=== PATIENT | male | born 1965 | race African-American/Black ===

== ENCOUNTER 2016-07-11 14:52 | Emergency (ER) | payer MEDICAID ==
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
[2016-07-11 17:18] LABS: % BASOPHILS 0.2 % (0.0-2.0); % EOSINOPHILS 2.7 % (0.0-5.0); % LYMPHOCYTES 35.9 % (20.0-50.0); % MONOCYTES 4.6 % (2.0-10.0); % NEUTROPHILS 56.6 % (40.0-80.0); HEMATOCRIT 38.5 % (39.0-49.0); MEAN CELL VOLUME 91.3 fl (80-99); MEAN CORPUSCULAR HEMOGLOBIN 30.8 pg (26.0-30.0); MEAN CORPUSCULAR HGB CONC 33.7 pg (28.0-36.0); MEAN PLATELET VOLUME 6.9 fl; NEUTROPHILE ABSOLUTE 2.7 Th/cmm (1.8-8.0); PLATELET COUNT 339 Th/cmm (150-400); RED BLOOD COUNT 4.22 Mil/cmm (4.30-5.70); RED CELL DISTRIBUTION WIDTH 15.4 % (11.5-20.0); WHITE BLOOD COUNT 4.7 Th/cmm (4.8-10.8)
[2016-07-11 17:25] LABS: ALKALINE PHOSPHATASE 84 U/L (34-104); ANION GAP 7.8 (7.0-16.0); BILIRUBIN,TOTAL 0.3 mg/dL (0.3-1.0); BUN - UREA NITROGEN 21 mg/dL (7-25); BUN/CREATININE RATIO 19.1; CALCIUM SERUM 9.3 mg/dL (8.6-10.3); CARBON DIOXIDE 24.2 mEq/L (21.0-31.0); CHLORIDE 106 mEq/L (98-107); CHOLESTEROL 160 mg/dL (<200); CREATININE - SERUM 1.1 mg/dL (0.7-1.3); GLUCOSE 82 mg/dL (70-105); SGOT 29 U/L (13-39); SGPT/ALT 28 U/L (7-52); SODIUM SERUM 134 mEq/L (136-145); TRIGLYCERIDES 420 mg/dL (<150)
[2016-07-11 17:27] LABS: INR 0.99 (0.5-1.4); PROTHROMBIN TIME (TEST) 9.8 SECONDS (9.5-11.5)
--- NOTE | 2016-07-12 10:24 | Diagnostic Imaging Report ---
CHEST X-RAY: AP view INDICATION: Headache, shortness of breath COMPARISON: None FINDINGS: Note that the left costophrenic angle is incompletely visualized. There is no focal consolidation or pleural effusions The heart is normal in size. Old left lower rib fracture, likely the 10th rib is noted. No evidence of pneumothorax. IMPRESSION: No focal consolidation or evidence of CHF.
== END 2016-07-11 19:05 | disposition home or self-care (01) ==
LOC: ER 14:52
DX: Z48.02 Encounter for removal of sutures (principal); I10 Essential (primary) hypertension
CPT/HCPCS: 36415-UA; 71010-TC; 80053-TC; 80061-TC; 84443-TC; 84484-TC; 85025-TC; 85610-TC; 85730-TC; 86592-TC; 93005